=== PATIENT | female | born 1980 | race Two or more races ===

== ENCOUNTER 2019-12-03 03:26 | Emergency (ER) | payer SELFPAY ==
[~2019-12-03] VITALS: Ht 165.1 cm; Wt 81.1 kg
[2019-12-03 04:02] VITALS: BP 138/65
[2019-12-03 05:15] LABS: BASO # 0.1 x10^3/uL (0.0-0.2); BASO % 1 % (0-3); EOS # 0.1 x10^3/uL (0.0-0.7); EOS % 1 % (0-3); HEMATOCRIT 35.2 % (36.0-47.0); HEMOGLOBIN 12.3 g/dL (12.0-15.5); LYMPH # 2.5 x10^3/uL (1.0-4.8); LYMPH % 30 % (24-48); MEAN CORPUSCULAR HEMOGLOBIN 31 pg (25-35); MEAN CORPUSCULAR HGB CONC 35 g/dL (31-37); MEAN CORPUSCULAR VOLUME 88 fL (79-100); MONO # 0.5 x10^3/uL (0.0-1.1); MONO % 6 % (0-9); NEUT # 5.2 x10^3/uL (1.8-7.7); NEUT % 62 % (31-73); PLATELET COUNT 200 x10^3/uL (140-400); RED BLOOD COUNT 4.02 x10^6/uL (3.50-5.40); RED CELL DISTRIBUTION WIDTH 14.3 % (11.5-14.5); WHITE BLOOD COUNT 8.4 x10^3/uL (4.0-11.0)
[2019-12-03 05:24] LABS: CALCIUM 8.6 mg/dL (8.5-10.1); CREATININE 0.6 mg/dL (0.6-1.0); GFR 111.9; POTASSIUM 3.7 mmol/L (3.5-5.1)
[2019-12-03 05:27] LABS: BILIRUBIN,URINE NEGATIVE (NEG); CLARITY,URINE CLEAR; COLOR,URINE YELLOW; NITRITE,URINE NEGATIVE (NEG); PH,URINE 7.5; PROTEIN,URINE NEGATIVE (NEG-TRACE); UROBILINOGEN,URINE 0.2 mg/dL (0.2 mg/dL)
--- NOTE | 2019-12-03 05:29 | RAD ---
OB <14 WKS W/TV History: with vaginal bleeding. Comparison: None. Technique: Grayscale and color Doppler imaging of the pelvis was performed using transabdominal and transvaginal technique. Findings: The uterus measures 10.9 x 8.1 x 6.0 cm in length. Single intrauterine gestational sac identified with pole and yolk sac. [place]-rump length 0.38 cm. Estimated gestational age by ultrasound 6 weeks 0 days. No heart rate was identified. Subchorionic hematoma adjacent to the gestational sac measures 2.4 x 1.0 x 1.56 image. Right ovary measures 4.4 x 2.5 x 2.7 cm. Right ovarian cyst measures 3.1 x 2.4 x 2.2 cm with internal echoes. Left ovary measures 2.4 x 1.8 x 1.2 cm. No adnexal masses are seen. Small pelvic free fluid. IMPRESSION: 1. Single intrauterine with estimated gestational age 6 weeks. No heart rate is identified. Findings may relate to early . Recommend short-term interval follow-up with serial beta-hCG testing. 2. Small subchorionic hematoma. 3. Right ovarian cyst. Electronically signed by: Williams Dubon DO (12/03/2019 5:27 AM) [id number]
[2019-12-03 05:30] LABS: ALBUMIN 3.4 g/dL (3.4-5.0); TOTAL BILIRUBIN 0.2 mg/dL (0.2-1.0); TOTAL PROTEIN 6.8 g/dL (6.4-8.2)
--- NOTE | 2019-12-03 06:02 | PHYS DOC ---
Past Medical History Past Medical History: No Pertinent History (CUONG MAXWELL Jr. DO) Past Surgical History: No Surgical History (CUONG MAXWELL Jr. DO) Smoking Status: Never Smoker Alcohol Use: None (CUONG MAXWELL Jr., DO) Adult General Chief Complaint Chief Complaint: VAGINAL BLEEDING HPI HPI Patient is a 38-year-old female who presents with vaginal bleeding. Patient believes that she is approximately 9 weeks . She denies any pelvic pain. She states that the bleeding started tonight and states that she has gone through 2 pads. Patient denies any urinary discomfort or fever.[] (CUONG MAXWELL Jr. DO) Review of Systems Review of Systems Constitutional: Denies fever or chills [] Respiratory: Denies cough or shortness of breath [] Cardiovascular: No additional information not addressed in HPI [] GI: Denies abdominal pain, nausea, vomiting or diarrhea [] : Positive vaginal bleeding[] Musculoskeletal: Denies back pain or joint pain [] Integument: Denies rash or skin lesions [] All other systems were reviewed and found to be within normal limits, except as documented in this note. (CUONG MAXWELL Jr. DO) Physical Exam Physical Exam Constitutional: Well developed, well nourished, no acute distress, non-toxic appearance. [] HENT: Normocephalic, atraumatic, bilateral external ears normal, oropharynx moist, no oral exudates, nose normal. [] Eyes: PERRLA, EOMI, conjunctiva normal, no discharge. [] Neck: Normal range of motion, no tenderness, supple. [] Cardiovascular: Regular rate and rhythm[] Lungs & Thorax: Bilateral breath sounds clear to auscultation [] Abdomen: Bowel sounds normal, soft, no tenderness. [] Skin: Warm, dry, no erythema, no rash. [] Extremities: No tenderness, no cyanosis, no clubbing, ROM intact, no edema. [] Neurologic: Alert and oriented X 3, no focal deficits noted. [] (CUONG MAXWELL Jr. DO) Current Patient Data Vital Signs Vital Signs Date Time Temp Pulse Resp B/P (MAP) Pulse Ox O2 Delivery O2 Flow Rate FiO2 12/03/19 04:02 98.9 83 16 138/65 (89) 96 Room Air 98.9 (BRITTNI BURGOS MD) Lab Values Laboratory Tests Test 12/03/19 04:50 12/03/19 05:20 White Blood Count 8.4 x10^3/uL (4.0-11.0) Red Blood Count 4.02 x10^6/uL (3.50-5.40) Hemoglobin 12.3 g/dL (12.0-15.5) Hematocrit 35.2 % (36.0-47.0) L Mean Corpuscular Volume 88 fL (79-100) Mean Corpuscular Hemoglobin 31 pg (25-35) Mean Corpuscular Hemoglobin Concent 35 g/dL (31-37) Red Cell Distribution Width 14.3 % (11.5-14.5) Platelet Count 200 x10^3/uL (140-400) Neutrophils (%) (Auto) 62 % (31-73) Lymphocytes (%) (Auto) 30 % (24-48) Monocytes (%) (Auto) 6 % (0-9) Eosinophils (%) (Auto) 1 % (0-3) Basophils (%) (Auto) 1 % (0-3) Neutrophils # (Auto) 5.2 x10^3/uL (1.8-7.7) Lymphocytes # (Auto) 2.5 x10^3/uL (1.0-4.8) Monocytes # (Auto) 0.5 x10^3/uL (0.0-1.1) Eosinophils # (Auto) 0.1 x10^3/uL (0.0-0.7) Basophils # (Auto) 0.1 x10^3/uL (0.0-0.2) Maternal Serum HCG Beta Subunit 18148 mIU/mL (0-5) H Sodium Level 137 mmol/L (136-145) Potassium Level 3.7 mmol/L (3.5-5.1) Chloride Level 104 mmol/L (98-107) Carbon Dioxide Level 24 mmol/L (21-32) Anion Gap 9 (6-14) Blood Urea Nitrogen 15 mg/dL (7-20) Creatinine 0.6 mg/dL (0.6-1.0) Estimated GFR (Cockcroft-Gault) 111.9 BUN/Creatinine Ratio 25 (6-20) H Glucose Level 100 mg/dL (70-99) H Calcium Level 8.6 mg/dL (8.5-10.1) Total Bilirubin 0.2 mg/dL (0.2-1.0) Aspartate Amino Transferase (AST) 14 U/L (15-37) L Alanine Aminotransferase (ALT) 19 U/L (14-59) Alkaline Phosphatase 70 U/L (46-116) Total Protein 6.8 g/dL (6.4-8.2) Albumin 3.4 g/dL (3.4-5.0) Albumin/Globulin Ratio 1.0 (1.0-1.7) Urine Collection Type Unknown Urine Color Yellow Urine Clarity Clear Urine pH 7.5 Urine Specific [place] 1.020 Urine Protein Negative mg/dL (NEG-TRACE) Urine Glucose (UA) Negative mg/dL (NEG) Urine Ketones (Stick) Negative mg/dL (NEG) Urine Blood Large (NEG) Urine Nitrite Negative (NEG) Urine Bilirubin Negative (NEG) Urine Urobilinogen Dipstick 0.2 mg/dL (0.2 mg/dL) Urine Leukocyte Esterase Negative (NEG) Urine RBC 20-40 /HPF (0-2) Urine WBC Occ /HPF (0-4) Urine Squamous Epithelial Cells Few /LPF Urine Bacteria Few /HPF (0-FEW) Urine Mucus Slight /LPF Laboratory Tests 12/03/19 04:50 Laboratory Tests 12/03/19 04:50 (BRITTNI BURGOS MD) EKG EKG [] (CUONG MAXWELL Jr. DO) Radiology/Procedures Radiology/Procedures [] (CUONG MAXWELL Jr. DO) Impressions: PROCEDURE: OB <14 WKS W/TV OB <14 WKS W/TV History: with vaginal bleeding. Comparison: None. Technique: Grayscale and color Doppler imaging of the pelvis was performed using transabdominal and transvaginal technique. Findings: The uterus measures 10.9 x 8.1 x 6.0 cm in length. Single intrauterine gestational sac identified with pole and yolk sac. [place]-rump length 0.38 cm. Estimated gestational age by ultrasound 6 weeks 0 days. No heart rate was identified. Subchorionic hematoma adjacent to the gestational sac measures 2.4 x 1.0 x 1.56 image. Right ovary measures 4.4 x 2.5 x 2.7 cm. Right ovarian cyst measures 3.1 x 2.4 x 2.2 cm with internal echoes. Left ovary measures 2.4 x 1.8 x 1.2 cm. No adnexal masses are seen. Small pelvic free fluid. IMPRESSION: 1. Single intrauterine with estimated gestational age 6 weeks. No heart rate is identified. Findings may relate to early . Recommend short-term interval follow-up with serial beta-hCG testing. 2. Small subchorionic hematoma. 3. Right ovarian cyst. Electronically signed by: Williams Dubon DO (12/03/2019 5:27 AM) [id number] (CUONG MAXWELL Jr., DO) Course & Med Decision Making Course & Med Decision Making Pertinent Labs and Imaging studies reviewed. (See chart for details) Patient moved to room upon arrival was evaluated by ER medical staff after which an IV was established and blood work was drawn. An ultrasound was performed as well. At this time, some of the blood work is still pending and patient is being signed out to the oncoming ER physician at 6:00 AM. (CUONG MAXWELL Jr., DO) Course & Med Decision Making Patient care transferred to me to follow up with the results of hCG negative and blood type. Patient had positive blood type and hCG level was 22,000. Patient was informed about the test result and needs to repeat the hCG in 48 hours. She was not happy with the test result and wanted to confirm if she is at this time and asking for a better ultrasound machine to show the heart rate. 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 I've spoken with the patient and/or caregivers. I've explained the patient's condition, diagnosis and treatment plan based on information available to me at this time. I've answered the patient's and/or caregivers questions and addressed any concerns. The patient and/or caregivers have a good understanding the patient's diagnosis, condition and treatment plan as can be expected at this point. Vital signs have been stabilized. The patient's condition is stable for discharge from the emergency department. The patient will pursue further outpatient evaluation with her primary care provider or other designated consulting physician as outlined in the discharge instructions. Patient and/or caregivers are agreeable to this plan of care and follow-up instructions have been explained in detail. The patient and/or caregivers have received these instructions in written format and expressed understanding of these discharge instructions. The patient and her caregivers are aware that if any significant change in condition or worsening of symptoms should prompt him to immediately return to this of the closest emergency department. If an emergent department is not readily available I would encourag e him to call 911. (BRITTNI BURGOS MD) Dragon Disclaimer Dragon Disclaimer This electronic medical record was generated, in whole or in part, using a voice recognition dictation system. (CUONG MAXWELL Jr. DO) Departure Departure Impression: Primary Impression: Threatened miscarriage Disposition: HOME, SELF-CARE Condition: STABLE Referrals: UNKNOWN PCP NAME (PCP) Patient Instructions: Threatened Miscarriage Additional Instructions: Follow-up with your MANAGER AUDIT physician in 48 hours to repeat blood test hCG, your current hCG is 22,000. Drink plenty of liquids Follow-up with your primary care physician in 3-5 days Return to ER if not getting better CUONG MAXWELL Jr., DO Dec 03, 2019 06:02 BRITTNI BURGOS MD Dec 03, 2019 06:43
[2019-12-03 06:08] LABS: BACTERIA,URINE FEW /HPF (0-FEW); RBC,URINE 20-40 /HPF (0-2); WBC,URINE OCC /HPF (0-4)
[2019-12-03 06:09] LABS: SQUAMOUS EPITHELIAL CELL,UR FEW /LPF
== END 2019-12-03 07:22 | disposition home or self-care (01) ==
LOC: ER 03:26
DX: O20.0 Threatened abortion (principal); Z3A.01 Less than 8 weeks gestation of pregnancy
CPT/HCPCS: 36415; 76801; 76817; 80053; 81001; 84702; 85025; 86900; 86901; 99285